=== PATIENT | female | born 1975 | race Caucasian/White ===

== ENCOUNTER 2024-09-09 09:19 | Outpatient (AMB) | payer BC, SELFPAY ==
--- NOTE | 2024-09-09 09:16 | AMB.GYNCLNOT ---
Vital Signs 09/09/24 09:28 Height 1.7 m Height Method Stated Weight 63.616 kg Weight Measurement Method Standing Scale BMI 21.9 BP 147/88 H Blood Pressure Source Automatic Cuff Blood Pressure Location Left Upper Arm Position Sitting Respiration 12 Pulse 65 Pulse Source Monitor Temp 97.8 F Temp Source Oral Pulse Oximetry (%) 98 Oxygen Delivery Method Room Air Allergies/Home Meds Allergies & Medications Allergies No Known Allergies Allergy (Verified 09/09/24 09:29) Medication Reconciliation estradiol 0.5 mg tablet 0.5 mg PO QDAY 09/09/24 [History Confirmed 09/09/24] progesterone micronized 100 mg capsule 100 mg PO QAM 09/09/24 [History Confirmed 09/09/24] Intake Visit Data Collection New Patient or Established: New Patient (never been to [facility]) Reason for Visit:: DISCUSS HORMONES Seen by Clinical Staff ONLY (RN/MA): No Contract Consultant Required: No Do You Feel Safe at Home: Yes Authorities Contacted: N/A PCP or OBGYN visit in last 3 months: No Hx Now: Yes Pain Present Currently: No Pain Scale Used: Wells-Joya/Numerical Pain scale:: 0 Smoking Status Smoking Status: Never smoker Nursing Coordinator history Nursing Coordinator History Menstrual regularity: irregular Flow: normal Monthly: No How many days does period last: 5 Age at menarche: 13 Currently sexually active: Yes Questionnaires Covid-19 Vaccine Questionnaire Has patient been vacinated for Covid-19 Have you been vacinated for Covid-19: Yes PHQ-9 PHQ-2 Over the last 2 weeks, how often have you been bothered by any of the following problems? 1. Little interest or pleasure in doing things: not at all 2. Feeling down, depressed, or hopeless: not at all Total score: 0 PHQ-9 3. Trouble falling or staying asleep, or sleeping too much: Not at all 4. Feeling tired or having little energy: Not at all 5. Poor appetite or overeating: Not at all 6. Feeling bad about yourself - or that you are a failure or have let yourself or your family down: Not at all 7. Trouble concentrating on things, such as reading the newspaper or watching television: Not at all 8. Moving or speaking so slowly that other people could have noticed? - Or the opposite - being so fidgety or restless that you have been moving around a lot more than usual: not at all 9. Thoughts that you would be better off or of hurting yourself in some way: Not at all Total score: 0 Source: Developed by Drs. Sohail Dobbins, Alley Bach, Nirmal Fenton and colleagues, with an educational mario from [employer]. Depression screen completed yes Social History Living Situation History Marital Status: Lives With: Family Housing: House Housing Other:: Has a 26, 24,14 and 12 year old Tobacco History Smoking Status: Never smoker Second Hand Smoke Exposure: No Alcohol History Alcohol Intake: Current Alcohol Intake Frequency: holidays/special occasions only Substance Use History Substance Use: NONE Domestic Abuse History Do You Feel Safe at Home: Yes Past Medical History Past Medical History Have you ever been diagnosed with any of the following: Neurological Problems Dementia: No Seizures: No Epilepsy: No Cardiology Problems Hypercholesterolemia: No Hypertension: No Respiratory Problems Asthma: No Pneumonia: Yes (History of valley fever) Sleep Apnea: No Smoking: No Stomache/Intestinal Problems Celiac Disease: No Gall Bladder Disease: No Gastroesophageal Reflux Disease: No Obesity: No Genital/Urinary Problems Kidney Stones: No Reproductive Problems Breast Cancer: No Endometriosis: No Fibroids: No Genital Herpes: No Gonorrhea: No Pelvic Inflammatory Disease: No Polycystic Ovarian Syndrome: No Previous Pregnancies: Yes (History of vaginal delivery x 4 in the past) Uterine Prolapse: No Musculoskeletal Problems Arthritis: No Rheumatoid Arthritis: No Head,Eye,Nose,Throat Problems Glaucoma: No Endocrine Problems Diabetes Mellitus Type 2: No (GRANDMOTHER) Hyperthyroidism: No Hypothyroidism: No Systemic Lupus Erythematosus: No Blood Problems Anemia: No Psychologic Problems Recreational Drug Use: No Depression: No Anxiety: No Attention Deficit Disorder: No Other Problems Hospitalization: Yes (For childbirth x 4) Autoimmune Disease: No Cosmetic Surgery: Yes (Breast implants) Surgical History Appendectomy: No Breast Surgery: Yes (Placement of breast implants) History of Present Illness HPI Narrative Patient is a very pleasant 49-year-old -1-0-4 who has been my patient for years in [place]. I saw her in April 2024 and she had an annual exam. I do not have any records today. She has no history of abnormal Pap smears. She was already perimenopausal about age 48. We have tried different hormone combinations on her including a patch which she states she stopped because it would not stay stuck on her skin. Most recently she has been on estradiol 0.5 mg daily and Prometrium 100 mg p.o. nightly for 10 days a month. Patient is withdrawing monthly on this. She states that she cannot sleep. She is still getting hot flashes and night sweats. We did try some estrogen vaginally and she states this was too messy she did not like to take this. She is reporting vaginal dryness. Of note I did give her a mammogram slip in April and she admits that she did not do her mammogram and would like another order for mammogram. She is interested in hearing about by [facility]. Review of Systems Review of Systems Narrative Review of Systems: Patient denies any abnormal bleeding. Her last period was around 48. She denies any abnormal discharge, no dysuria, no urinary complaints. She does state intercourse is painful secondary to dryness. She is reporting hot flashes ,night sweats,irritability and difficulty sleeping. Systems Reviewed: All systems reviewed, normal except as documented Exam General Limitations: no limitations General Appearance: alert, in no apparent distress, cooperative, healthy appearing and well groomed Assessment & Plan Diagnosis / Problem List (1) Post-menopause on HRT (hormone replacement therapy): Status: Acute Plan: Patient is currently on 0.5 mg estradiol daily and Prometrium 100 nightly x 10 days a month. She is still symptomatic. Plan will be to bump up estradiol to 1 mg a day. This will be refilled. We will consider Bijuva if this is not effective. Patient will follow-up for an annual exam in April. (2) Hot flashes due to menopause: Status: Acute Plan: Increase estrogen dose as above (3) Perimenopausal atrophic vaginitis: Status: Acute Plan: Patient declines vaginal estrogen. This should improve as we increased her estrogen dose as above. 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
[2024-09-09 09:28] VITALS: BP 147/88; PULSE 65; RESP 12; TEMP 36.6; O2SAT 98; BMI 21.9
== END 2024-09-09 09:57 | disposition home or self-care (01) ==
LOC: HODSOBC 09:19
PROVIDERS: Supervising Provider Obstetrics & Gynecology; Visit Provider Obstetrics & Gynecology
DX: N95.2 Postmenopausal atrophic vaginitis (principal); N95.1 Menopausal and female climacteric states; R23.2 Flushing; Z79.890 Hormone replacement therapy
CPT/HCPCS: 99203; G0463